=== PATIENT | female | born 1965 | race Caucasian/White ===

== ENCOUNTER 2022-12-12 14:49 | Outpatient (OUT) | payer OTHER, SELFPAY ==
--- NOTE | 2022-12-12 15:12 | CA_ITS ---
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: : [id number] Requested By: [id number] Order Number: [id number] Reading MD: DUYEN SAENZ Interpretive Statements Predominant rhythm is sinus with average rate of 72 bpm Tachycardia 3% total - max rate of 133 bpm Bradycardia 22% total - min rate of 42 bpm Ventricular ectopy - 13,848 beats, < 1% total NSVT - 3 asymptomatic episodes - duration of 4,5 and 9 beats Impression: Predominant rhythm is sinus with average rate of 72 bpm Fastest rate of 133 bpm and slowest rate of 42 bpm 13,848 ventricular premature beats 3 episodes of Non Sustained Ventricular Tachycardia w/ longest duration of 9 beats No atrial fibrillation or flutter No blocks or pauses Electronically Signed On 01-21-2023 11:17:43 EDT by DUYEN SAENZ
== END 2022-12-12 14:50 | disposition home or self-care (01) ==
LOC: CARD 14:49
DX: R55 Syncope and collapse (principal)
CPT/HCPCS: 93270